=== PATIENT | male | born 1980 | race Hispanic/Latino ===

== ENCOUNTER 2025-02-11 07:13 | Emergency (ER) | payer SELFPAY ==
[2025-02-11] MEDS ORDERED: Orphenadrine Citrate 60 MG/2 ML VIAL ONE (08:19)
[2025-02-11] MEDS ORDERED: Ondansetron PF 4 MG/2 ML Vial ONE (09:31)
[2025-02-11] MEDS ORDERED: Aspirin Chewable 81 MG TAB ONE (09:31)
[2025-02-11 09:48] LABS: #Basophils 0.1 thou/uL (0.0-0.2); #Eosinophils 0.1 thou/uL (0.0-0.7); #Lymphocytes 1.4 thou/uL (1.20-3.40); #Monocytes 0.4 thou/uL (0.11-0.59); #Neutrophils 6.3 thou/uL (1.40-6.50); %Basophils 1.5 % (0.0-1.0); %Eosinophils 1.2 % (0.0-10.0); %Lymphocytes 16.9 % (21.0-51.0); %Monocytes 5.1 % (0.0-10.0); %Neutrophils 75.4 % (42.0-75.0); Hematocrit 49.0 % (42.0-52.0); Hemoglobin 17.1 g/dL (14.0-18.0); Mean Corpuscular Hemoglobin 30.5 pg (27.0-31.0); Mean Corpuscular Volume 87.5 fl (78.0-98.0); Platelet Count 150 10x3/uL (130-400); Red Blood Cell (RBC) Count 5.60 mill/uL (4.70-6.10); White Blood Cell (WBC) Count 8.4 10x3/uL (4.8-10.8)
[2025-02-11 10:00] LABS: ALT (SGPT) 43 U/L (Less than 45); AST (SGOT) 45 U/L (11-34); Albumin 3.9 g/dL (3.1-4.5); Alkaline Phosphatase 123 U/L (40-110); Anion Gap 16 mmol/L (10-20); BUN (Urea Nitrogen) 13 mg/dL (8.9-20.6); Bilirubin, Total 1.5 mg/dL (0.3-1.2); Calc. Creatinine Clearance 0 mL/min (70-130); Calcium 9.1 mg/dL (7.8-10.44); Carbon Dioxide 22 mmol/L (22-29); Chloride 101 mmol/L (98-107); Globulin 3.4 g/dL (2.4-3.5); Glucose 308 mg/dL (70-105); Magnesium 1.9 mg/dL (1.6-2.6); Potassium 5.1 mmol/L (3.5-5.1); Sodium 134 mmol/L (136-145)
[2025-02-11 10:06] LABS: Troponin I 0.025 ng/mL (< 0.028)
[2025-02-11] MEDS ORDERED: hydrALAZINE 20 MG/ML VIAL ONE (10:12)
== END 2025-02-11 11:17 | disposition home or self-care (01) ==
LOC: MADERS 07:13
DX: S16.1XXA Strain of muscle, fascia and tendon at neck level, initial encounter (principal); S39.012A Strain of muscle, fascia and tendon of lower back, initial encounter; S29.011A Strain of muscle and tendon of front wall of thorax, initial encounter; E11.65 Type 2 diabetes mellitus with hyperglycemia; I10 Essential (primary) hypertension; Z91.148 Patient's other noncompliance with medication regimen for other reason; Z79.899 Other long term (current) drug therapy; X58.XXXA Exposure to other specified factors, initial encounter
CPT/HCPCS: 36416; 71046; 80053; 83735; 83880; 84484; 85025; 85379; 93005; 96372; 96374; 96375; J0360; J1815; J1885; J2360